=== PATIENT | female | born 1990 | race Caucasian/White ===

== ENCOUNTER 2017-11-05 09:38 | Outpatient (CLI) | payer OTHER ==
[2017-11-05] MEDS ORDERED: LACTATED RINGERS 500 ML IV ONE (10:35)
[2017-11-05 11:08] LABS: Amorphous Crystals,Urine Few; Bacteria,Urine 2+ /HPF (Negative); Bilirubin,Urine NEG (Negative); Blood,Urine NEG (Negative); Color,Urine Yellow (Yellow); Mucus,Urine 2+ /HPF; Protein,Urine <15 mg/dL mg/dL (Negative); Urobilinogen,Urine < 2.0 mg/dL (<2.0)
[2017-11-05] MEDS ORDERED: ceFAZolin 2 GM in NACL 0.9% 100 ML IV ONE (13:21)
--- NOTE | 2017-11-05 16:22 | Ultrasound Report ---
FINAL REPORT EXAM: US OB LIMITED HISTORY: ctx COMPARISON: None. TECHNIQUE: Limited ultrasound for cervical length was performed. FINDINGS: The cervix measures 3.6 centimeters and is closed. There is a single live intrauterine in cephalic presentation. heart rate is 164 beats per minute. IMPRESSION: Cervical length of 3.6 centimeters. Single live intrauterine in cephalic presentation with heart rate of 164 beats per minute.
== END 2017-11-05 18:54 | disposition home or self-care (01) ==
LOC: TRG 09:38
PROVIDERS: ATTEND Obstetrics & Gynecology
DX: O47.02 False labor before 37 completed weeks of gestation, second trimester (principal); Z3A.26 26 weeks gestation of pregnancy; Z91.018 Allergy to other foods; Z91.013 Allergy to seafood
CPT/HCPCS: 36415; 76815; 81001; 82731; J0690; J7120